=== PATIENT | male | born 1965 | race Caucasian/White ===

== ENCOUNTER → 2018-06-14 | Outpatient (CLI) | payer BC, OTHER ==
[~2018-06-14] MED LIST: AC325T PO; AMLO2.5T PO; ASP81TEC PO; CATHETER FLUSH 10 ML SYR IV PRN; IBUP-30 PO; IOHEXOL 350 MG/ML 150 ML (OMNIPAQUE 350) VIAL IV ONE; NS 250 ML (IVPB) BAG IV ONE; ROSU10TA12 PO
[2018-06-14 07:16] LABS: BUN/CREATININE RATIO 17; CREATININE SERUM 1.08 MG/DL (0.60-1.30); GFR ESTIMATED > 60
--- NOTE | 2018-06-14 10:35 | Diagnostic Imaging Report ---
PROCEDURE: CT angiography of the chest with contrast. TECHNIQUE: Multiple contiguous axial images were obtained through the chest after uneventful bolus administration of intravenous contrast. Reconstructed CTA MIP acquisitions were also performed. INDICATION: Chest pain. 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 The aorta measured 4.4 x 4.4 cm. FINDINGS: On this exam, the ascending aorta measures 4.4 x 4.5 cm. There is still no evidence for dissection of the aorta. There is no defect within the pulmonary arteries to indicate pulmonary embolus. The borderline cardiomegaly noted previously is again evident and no different. There is no sign of pericardial effusion. There are no definite coronary artery calcifications evident. There is no mediastinal or hilar adenopathy. Thyroid gland is unremarkable. The lungs are generally clear and well aerated. The sections through the upper abdomen are unremarkable for an acute abnormality. The bone windows show no sign of a fracture or for a destructive lesion. IMPRESSION: 1. There is no evidence for an acute cardiopulmonary abnormality. 2. The aneurysmal dilatation of the ascending aorta seen previously appears stable. The borderline cardiomegaly noted on the prior exam is also unchanged. Dictated by: Dictated on workstation # [id number]
== END ==
LOC: RAD 06:45
PROVIDERS: ATTEND Physician Assistant
DX: I71.2 Thoracic aortic aneurysm, without rupture (principal); I25.10 Atherosclerotic heart disease of native coronary artery without angina pectoris; I10 Essential (primary) hypertension; E78.2 Mixed hyperlipidemia
CPT/HCPCS: 36415; 71275; 82565; 84520